=== PATIENT | female | born 1990 | race Caucasian/White ===

== ENCOUNTER → 2017-07-21 | Outpatient (CLI) | payer OTHER ==
[2017-07-21 11:10] LABS: GTGD 50 Grams
== END | disposition home or self-care (01) ==
LOC: C.LAB1850 09:24
PROVIDERS: ATTEND Obstetrics & Gynecology
DX: Z34.02 Encounter for supervision of normal first pregnancy, second trimester (principal)

== ENCOUNTER → 2017-10-12 | Outpatient (CLI) | payer OTHER ==
[2017-10-12 18:16] LABS: URINE APPEARANCE CLEAR (CLEAR); URINE BILIRUBIN NEG (NEG); URINE COLOR YELLOW; URINE NITRITE NEG (NEG); URINE PH 6.5 (4.5-7.5); UROBILINOGEN NEG (NEG)
[2017-10-12 18:19] LABS: MANUAL MICROSCOPIC REQUIRED? YES; REVIEW REQ? NO
[2017-10-12 18:26] LABS: URINE BACTERIA 1+ (NEG); URINE RBC 0-4 /hpf (0-4)
== END | disposition home or self-care (01) ==
LOC: C.LABSPEC 17:35
PROVIDERS: ATTEND Obstetrics & Gynecology
DX: Z34.03 Encounter for supervision of normal first pregnancy, third trimester (principal)

== ENCOUNTER → 2017-10-12 | Outpatient (CLI) | payer OTHER ==
[2017-10-12 17:27] LABS: HEMATOCRIT 34.4 % (37-47)
[2017-10-12 18:56] LABS: GTGD 50 Grams
== END | disposition home or self-care (01) ==
LOC: C.LAB1850 15:58
PROVIDERS: ATTEND Obstetrics & Gynecology
DX: Z34.03 Encounter for supervision of normal first pregnancy, third trimester (principal)

== ENCOUNTER 2017-12-11 16:16 | Outpatient (CLI) | payer OTHER ==
[2017-12-11] MEDS ORDERED: PRENTAB26 PO (17:35)
== END 2017-12-11 17:27 | disposition home or self-care (01) ==
LOC: C.LD 16:16 → C.OPB 16:16
PROVIDERS: ATTEND Obstetrics & Gynecology
DX: O99.89 Other specified diseases and conditions complicating pregnancy, childbirth and the puerperium (principal); M54.9 Dorsalgia, unspecified; Z3A.36 36 weeks gestation of pregnancy

== ENCOUNTER → 2017-12-14 | Outpatient (CLI) | payer OTHER ==
[~2017-12-14] MED LIST: PRENTAB26 PO
== END | disposition home or self-care (01) ==
LOC: C.LABSPEC 17:52
PROVIDERS: ATTEND Obstetrics & Gynecology
DX: Z34.03 Encounter for supervision of normal first pregnancy, third trimester (principal)

== ENCOUNTER 2018-01-03 13:43 | Inpatient (IN) | payer OTHER ==
[~2018-01-03] VITALS: Ht 162.6 cm; Wt 72.3 kg
[2018-01-03 15:33] LABS: HEMATOCRIT 36.9 % (37-47); HEMOGLOBIN 12.9 g/dL (12.0-16.0); MEAN CELL VOLUME 94.9 fL (80-100); MEAN CORPUSCULAR HEMOGLOBIN 33.2 pg (25-34); MEAN PLATELET VOLUME 9.8 fL (7.4-10.4); PLATELET COUNT 227 K/uL (130-400); RED CELL DISTRIBUTION WIDTH CV 13.2 % (11.5-14.5); RED CELL DISTRIBUTION WIDTH SD 45.6 fL (36.4-46.3); WHITE BLOOD COUNT 15.98 K/uL (4.8-10.8)
[2018-01-03 16:09] VITALS: Ht 162.6 cm; Wt 72.3 kg
[2018-01-03] MEDS ORDERED: MISOPROSTOL 25 MCG TAB PO ONE (21:00)
[2018-01-04] MEDS ORDERED: LACTATED RINGER'S 1000ML 500 ML IV PRN ×2 (01:57→12:32)
[2018-01-04] MEDS ORDERED: OXYTOCIN 30 UNITS/500ML NSS IV PRN ×2 (02:00→19:15)
[2018-01-04] MEDS ORDERED: LACTATED RINGER'S 1000ML 1,000 ML IV PRN (06:11)
[2018-01-04] MEDS ORDERED: LACTATED RINGER'S 1000ML 1,000 ML IV SCH (06:11)
--- NOTE | 2018-01-04 09:34 | Progress Note ---
Progress Note Date of Service Jan 04, 2018. Progress Note patient notes she is nauseated and has carter. Rates contractions a 3 afvss cx--3/80/-2 forebag ruptured for clear fluid toco--q2-3min, pit at 17 efm--130s with mod variability, accels to 150s, no decels a/p--prom x 21.5 hours, clear, afebrile. plan to max pit at 20 and then if no change, plan iupc and increase pit to needed mvus. plan explained to the patient who expresses understanding.
[2018-01-04] MEDS ORDERED: NALOXONE HCL INJ 1 MG in SODIUM CHLORIDE 0.9% 1000ML 1,000 ML IV PRN (12:32)
[2018-01-04] MEDS ORDERED: ONDANSETRON INJ 2 MG/ML 2 ML VIAL IV PRN (12:45)
[2018-01-04] MEDS ORDERED: FENTANYL 2MCG/ML ROPIV 1.25MG/ML 100ML BAG EPI PRN (12:45)
[2018-01-04] MEDS ORDERED: NALOXONE HCL INJ 0.4 MG/1 ML VIAL/CARP IV PRN (12:45)
[2018-01-04] MEDS ORDERED: EpHEDrine SULFATE INJ 50 MG/ML AMP IV PRN (12:45)
[2018-01-04] MEDS ORDERED: NALBUPHINE HCL INJ 10 MG/ML AMP IV PRN (12:45)
[2018-01-04] MEDS ORDERED: DiphenhydrAMINE HCL 50 MG/ML VIAL IV PRN (12:45)
[2018-01-04] MEDS ORDERED: BUPIVACAINE 0.25% 30 ML VIAL ONE (13:11)
[2018-01-04] MEDS ORDERED: FENTANYL CITRATE INJ 50 MCG/1 ML 2 ML VIAL ONE (13:11)
[2018-01-04] MEDS ORDERED: EpHEDrine SULFATE INJ 50 MG/ML AMP ONE (13:11)
[2018-01-04] MEDS ORDERED: FENTANYL 2MCG/ML ROPIV 1.25MG/ML 100ML BAG EPI ONE (13:12)
[2018-01-04] MEDS ORDERED: METHYLERGONOVINE MALEATE 0.2 MG TAB ONE (19:00)
[2018-01-04] MEDS ORDERED: METHYLERGONOVINE MALEATE 0.2 MG/ML AMP ONE (19:01)
[2018-01-04] MEDS ORDERED: DIPHTHERIA/TETANUS/PERTUSSIS 0.5 ML SYR/VIAL IM. ONE (19:15)
[2018-01-04] MEDS ORDERED: LANOLIN OINT EXT PRN (19:15)
[2018-01-04] MEDS ORDERED: HYDROCORTISONE ACETATE 25 MG SUPP PR PRN (19:15)
[2018-01-04] MEDS ORDERED: METHYLERGONOVINE MALEATE 0.2 MG/ML AMP IM ONE (19:15)
[2018-01-04] MEDS ORDERED: OXYCODONE/ACETAMINOPHEN 5-325 TAB PO PRN (19:15)
[2018-01-04] MEDS ORDERED: SUPERCREAM 0.870 % 15GM JAR EXT PRN (19:15)
[2018-01-04] MEDS ORDERED: ACETAMINOPHEN 325 MG TAB PO PRN (19:15)
[2018-01-04] MEDS ORDERED: BENZOCAINE 20% AER SPR 82.5 GM CAN EXT PRN (19:15)
--- NOTE | 2018-01-04 20:37 | DELIVERY SUMMARY ---
DATE OF OPERATION: 01/04/2018 PREOPERATIVE DIAGNOSES: 1. Intrauterine at 40-2/7 weeks. 2. and prolonged rupture of membranes. 3. Pitocin augmentation. 4. Epidural anesthesia. 5. Intrauterine pressure catheter. 6. Normal spontaneous vaginal delivery. 7. Second degree perineal laceration with repair. SURGEON: Catarina Fofana MD. ANESTHESIA: Epidural. ESTIMATED BLOOD LOSS: 400 mL. DESCRIPTION OF THE PROCEDURE: The patient presented to labor and delivery with rupture of membranes on 01/03/2018 at noon. She really did not want any intervention and so she was expectantly managed for several hours. When she did not have any significant change, she eventually accepted Pitocin augmentation and this was approximately 5 a.m. on 01/04/2018. She then progressed slowly and Pitocin achieved at maximum per protocol of 20 milliunits per minute. A forebag had previously been ruptured for clear fluid. Her cervix was unchanged at 3, 80 and -2. An intrauterine pressure catheter was placed and contractions were now found to be adequate. A new max of 30 milliunits was imitated on the Pitocin and she did progress to that but then finally did get into an adequate contraction pattern with greater than 200 MVU. She then progressed to complete complete and +2 station. She pushed effectively to deliver a viable female in LIYAH presentation. The nose and mouth were bulb suctioned on the perineum. A tight nuchal cord that could not be reduced was clamped and cut on the perineum. The rest of the infant was then delivered without difficulty. The infant was placed on the maternal abdomen for drying and attention. Cord blood was obtained. Placenta was delivered spontaneously intact with a 3-vessel cord. Cervix, sulci and rectum were examined and found to be intact. A second degree perineal laceration was repaired with 3-0 Vicryl in a normal standard fashion. Hemostasis was obtained with dilute Pitocin, fundal massage and IM Methergine. Apgars were 9 and 9. Weight pending. Mother and baby doing well at the end of the delivery. I attest to the content of the Intraoperative Record and any orders documented therein. Any exception s are noted below.
[2018-01-04] MEDS: DOCUSATE SODIUM 100 MG CAP PO SCH (20:41)
[2018-01-04] MEDS: IBUPROFEN 600 MG TAB PO PRN (21:20)
--- NOTE | 2018-01-04 21:34 | Anesthesia Procedure Note ---
Anesthesia Epidural Removal Nt Date & Time Jan 04, 2018 at 21:34 Vital Signs Pain Intensity: 1 Notes Mental Status: alert / awake / arousable, participated in evaluation Nausea / Vomiting: adequately controlled Pain: adequately controlled Airway Patency, RR, SpO2: stable & adequate BP & HR: stable & adequate Hydration State: stable & adequate Neuraxial Anesthesia: was administered Anesthetic Complications: no major complications apparent, pt satisfied with anesthetic care Epidural: removed without complications, with tip intact
[2018-01-04 23:00] VITALS: BP 124/74; PULSE 99; TEMP 37.1; O2SAT 97
[2018-01-05 04:00] VITALS: BP 101/58; PULSE 87; TEMP 36.9; O2SAT 96
[2018-01-05 07:21] LABS: HEMATOCRIT 30.3 % (37-47); HEMOGLOBIN 10.8 g/dL (12.0-16.0)
[2018-01-05 07:30] VITALS: BP 99/68; PULSE 88; TEMP 36.4; O2SAT 97
--- NOTE | 2018-01-05 08:03 | Progress Note ---
Subjective Jan 05, 2018. Subjective conversation w/ patient, conversation w/ family, physical exam, chart review Ambulation: limited ambulation Voiding: no voiding problems Passing Gas: Yes Diet Tolerance: Regular Diet Lochia: Moderate Feeding Type: Breast Feeding Pain: Reports some manageable perineal pain Comment: Pt seen and examined at bedside. no acute events overnight Review of Systems Constitutional: + fatigue, No fever, No chills, No sweats, No weight loss, No weakness, No problem reported Respiratory: No cough, No sputum, No wheezing, No shortness of breath, No dyspnea on exertion, No dyspnea at rest, No hemoptysis, No problem reported Cardiac: No chest pain, No orthopnea, No PND, No edema, No claudication, No palpitations, No problem reported Breast: No breast lump, No change in shape, No nipple discharge, No breast pain , No problem reported Abdomen: No pain, No nausea, No vomiting, No diarrhea, No constipation, No GI bleeding, No problem reported Female : No dysuria, No urinary frequency, No hematuria, No incontinence, No abnormal vaginal bleeding, No vaginal discharge, No problem reported No headaches reported Objective Vital Signs Date Time Temp Pulse Resp B/P (MAP) Pulse Ox O2 Delivery O2 Flow Rate FiO2 01/05/18 04:00 36.9 87 16 101/58 (72) 96 Room Air 01/04/18 23:00 37.1 99 20 124/74 (91) 97 Room Air 01/04/18 23:00 97 Room Air Physical Exam General Appearance: WELL-APPEARING, WD/WN, NO APPARENT DISTRESS Respiratory/Chest: chest non-tender, lungs clear, normal breath sounds Cardiovascular: regular rate, rhythm, no edema, no gallop Abdomen: normal bowel sounds, non tender, soft Fundus: Firm, Tender, Relation to Umbilicus (2 cm below) Extremities: normal range of motion, non-tender, normal inspection, no pedal edema, no calf tenderness Laboratory Results Last 24 Hours Test 01/05/18 06:58 Hemoglobin 10.8 g/dL Hematocrit 30.3 % Medications Current Inpatient Medications Medications (Trade) Dose Ordered Sig/[place] Route Start Time Stop Time Status Last Admin Dose Admin Oxytocin (Pitocin IV) 30 units UD PRN IV 01/04/18 19:15 02/03/18 19:14 01/04/18 19:19 30 UNITS Benzocaine (Dermoplast Aero Spr) 1 appln PRN PRN EXT 01/04/18 19:15 02/03/18 19:14 01/04/18 20:41 1 APPLN Cocaine HCl (Supercream 0.870% Cr) BID PRN EXT 01/04/18 19:15 01/18/18 19:14 Hydrocortisone Acetate (Anusol Hc Supp) 25 mg BID PRN ID 01/04/18 19:15 02/03/18 19:14 Lanolin (Lanolin Oint) PRN PRN EXT 01/04/18 19:15 02/03/18 19:14 Prenat Multivit/ [place]/Iron/Folic Ac ( Vitamin Tab) 1 tab DAILY PO 01/05/18 08:00 02/04/18 07:59 Ibuprofen (Motrin Tab) 600 mg Q4H PRN PO 01/04/18 19:15 02/03/18 19:14 01/04/18 21:20 600 MG Acetaminophen (Tylenol Tab) 650 mg Q6H PRN PO 01/04/18 19:15 02/03/18 19:14 Oxycodone/ Acetaminophen (Percocet 5-325mg Tab) 1 tab Q4H PRN PO 01/04/18 19:15 01/18/18 19:14 Docusate Sodium (coLACE CAP) 100 mg BID PO 01/04/18 20:00 02/03/18 19:59 01/04/18 20:41 100 MG Assessment and Plan Post- Day#: 1 Continue Routine Care: S/P day 1 AFVSS Hgb 12.9--10.8 blood type AB pos, GBS neg, rubella immune pt doing well clinically, quite fatigued from yesterday Encourage ambulation, monitoring pain control, continue regular diet, monitor lochia Continue bottom care and breast care as discussed Encourage breast feeding Resident Physician Supervision Note: I interviewed and examined the patient. Discussed with Dr. Johnson and agree with findings and plan as documented in the note. Any exceptions or clarifications are listed here: Doing well. routine care. Documented By: Catarina Fofana Resident Tracking Resident Involvement: Resident Care Provided Care Provided: OB Delivery
[2018-01-05] MEDS: PRENATAL VITAMIN TAB PO SCH (08:04)
[2018-01-05] MEDS: DOCUSATE SODIUM 100 MG CAP PO SCH ×2 (08:04→19:38)
[2018-01-05] MEDS: IBUPROFEN 600 MG TAB PO PRN ×3 (08:05→19:39)
[2018-01-05 11:35] VITALS: BP 103/67; PULSE 67; TEMP 36.7; O2SAT 97
[2018-01-05 15:50] VITALS: BP 100/68; PULSE 86; TEMP 36.9
--- NOTE | 2018-01-05 22:07 | Discharge Instructions ---
Discharge Instructions Date of Service Jan 05, 2018. Admission Reason for Admission: LABOR Discharge Discharge Diagnosis / Problem: s/p Discharge Goals Goal(s): Routine recovery after delivery Medications Continue Dispensed Medications: supercream, dermaplast, tucks, lansinoh Activity Recommendations Activity Limitations: per Instructions/Follow-up section . Instructions / Follow-Up Instructions / Follow-Up ACTIVITY RECOMMENDATIONS: * Gradual return to full activity over the next 2-3 weeks. * No lifting - nothing heavier than baby over the next 2-3 weeks. * Do not engage in vigorous exercise, sexual activity or sports until cleared by your physician. * Do not drive or operate any motorized equipment until cleared by your physician. * You may shower/bathe daily. MEDICATIONS: For discomfort or pain, you may use Acetaminophen (Tylenol), Ibuprofen (Advil), or Naproxen (Aleve) following the package directions. For constipation you may use Colace following the package directions. BREAST CARE: If you are not breast feeding: * Wear a supportive bra 24 hours a day for one to two weeks. * Avoid stimulating your breasts and nipples as much as possible during the first few weeks after delivery. * When taking a shower, have the warm water hit your back, not breasts. * When your breasts feel full, apply ice packs. Usually three to four times a day helps ease the discomfort. * Take a mild pain medication (Tylenol / Motrin) when you are uncomfortable. If breast feeding: * Use breast milk to lubricate nipples. Lansinoh cream may be used for sore nipples. You do not need to remove cream prior to breast feeding. If using a different brand of cream, check the label for directions regarding removal of cream prior to nursing. * Wear a supportive bra. * If having problems with breasts or breast feeding, call a windows consultant or your health care provider. EPISIOTOMY CARE: After delivery, if you have an episiotomy (stitches), the following steps will ease discomfort and aid healing. * For the first 24 hours after delivery, place ice packs next to your episiotomy to help reduce swelling. * After the first 24 hour-period, sitz baths, either portable or in the tub, are suggested. A shower with a shower arm sprayed over the episiotomy may be comforting. * Deandra care should be done after each voiding and bowel movement. Squirt warm water from a plastic bottle over the perineum (region of the body between the anus and urinary opening) and pat dry. * Use Dermoplast to ease discomfort. Shake container. [place] directly over the episiotomy. Place a Tucks on a clean sanitary pad next to your episiotomy. SPECIAL CARE INSTRUCTIONS: When you are discharged from the hospital, it is important for you to follow the instructions listed below: * During the first week at home, you should be able to care for yourself and your baby. In addition, the usual light household activities are encouraged. * Limit your activities to the way you feel. Do not try to clean the house or move furniture. Be sensible. * If you actively engage in sports and have done so up until the time of your delivery, you may resume these activities as soon as you feel able. This may take up to one month or even longer. Use good judgment. * Continue to take your vitamins for at least six weeks after the of your baby. * Your diet need not be limited unless you were on a special diet before your delivery. Breast-feeding mothers need around 2500 calories per day and at least 64-80 ounces of fluid per day (8 to 10 glasses). * You should eat foods from the four major food groups. Crash diets or fad diets are to be avoided. Eating lean meats, fresh fruits and vegetables, low-fat dairy products, high fiber foods and a regular exercise program, will help you get back to your pre- weight without putting your health at risk. * Constipation is sometimes a problem after delivery. Take a mild laxative as needed. If breast feeding, Milk of Magnesia is acceptable to use. You may use a suppository or Fleets enema if no episiotomy. * A daily shower or tub bath is suggested. Be sure to thoroughly and gently dry the perineum. * A bloody vaginal discharge will usually continue until around four weeks post . A small amount of bleeding may continue for as long as six weeks. Vaginal discharge changes from the bright red bleeding after delivery to pink then brownish and finally yellowish-pink before becoming white and disappearing. * Bleeding may increase with activity. Your first period may come in 4-8 weeks. If you are breast feeding, your period may be delayed even longer. * [place] (sex) can begin whenever both you and your partner feel comfortable and do not have any form of genital infection. It is recommended that you wait at least six weeks for internal and external healing to occur. If you have questions, please talk to your health care practitioner. A condom should be used to prevent infection and . * Foreplay, gentle intercourse and lubrication is very important the first several times to prevent pain. A water-based lubricant such as K-Y jelly or Astroglide may be used. * If you have RH negative blood and your baby is RH positive, you will receive RHOGAM by injection prior to discharge. The nurse will give you a card to keep with you that has the date and place that you received RHOGAM after delivery. * During your care, you had a Rubella screen done to check for the presence of rubella antibodies in your blood. If your test was negative, you will receive a Rubella vaccine prior to discharge. This vaccine may cause a fever, soreness at the injection site and flu-like symptoms. If these symptoms persist, notify your health care practitioner. is not advised for one month after a Rubella vaccine. * Verbalizes understanding of car seat law as reviewed with patient nursing. * Car Seat hand-out given and reviewed with patient by nursing. * Shaken baby information reviewed with patient by nursing. Call you doctor if: * Heavy bleeding (saturating several pads an hour) or passing clots the size of your fist. * A fever >101 degrees F (38.3 degrees C) on two occasions four hours apart and /or chills. * Unusual pain in the pelvic or vaginal areas. * "Baby Blues" lasting longer than two weeks. If you have any questions or concerns, call your health care practitioner at . FOLLOW UP VISIT: * Please call the office at to schedule a 6 week examination. It is important you keep this appointment. It is important for you to make arrangements for either yearly or twice yearly check-ups thereafter. Current Hospital Diet Patient's current hospital diet: Regular OB Diet, Gluten Free Diet Discharge Diet Recommended Diet: Gluten Free Diet, Regular OB Diet Pending Studies Studies pending at discharge: no Medical Emergencies . Who to Call and When: Medical Emergencies: If at any time you feel your situation is an emergency, please call 911 immediately. . Non-Emergent Contact Non-Emergency issues call your: [employer] . . "Provider Documentation" section prepared by Albertina Johnson. .
[2018-01-05 23:00] VITALS: BP 108/72; PULSE 76; TEMP 36.7; O2SAT 97
--- NOTE | 2018-01-06 07:08 | Progress Note ---
Subjective Jan 06, 2018. Subjective conversation w/ patient, physical exam, chart review, lab review Ambulation: ambulating normally Voiding: no voiding problems Passing Gas: Yes Diet Tolerance: Regular Diet Lochia: Small Feeding Type: Breast Feeding Pain: minimal pain reported and improving Comment: pt seen and examined at bedside, no acute events overnight Review of Systems Constitutional: No fever, No chills, No sweats, No weight loss, No weakness, No fatigue, No problem reported Respiratory: No cough, No sputum, No wheezing, No shortness of breath, No dyspnea on exertion, No dyspnea at rest, No hemoptysis, No problem reported Cardiac: No chest pain, No orthopnea, No PND, No edema, No claudication, No palpitations, No problem reported Breast: No breast lump, No change in shape, No nipple discharge, No breast pain , No problem reported Abdomen: No pain, No nausea, No vomiting, No diarrhea, No constipation, No GI bleeding, No problem reported Female : No dysuria, No urinary frequency, No hematuria, No incontinence, No abnormal vaginal bleeding, No vaginal discharge, No problem reported no headache or calf pain reported Objective Vital Signs Date Time Temp Pulse Resp B/P (MAP) Pulse Ox O2 Delivery O2 Flow Rate FiO2 01/05/18 23:00 36.7 76 18 108/72 (84) 97 Room Air 01/05/18 23:00 97 Room Air 01/05/18 15:50 Room Air 01/05/18 15:50 36.9 86 16 100/68 (79) Room Air 01/05/18 11:35 36.7 67 18 103/67 (79) 97 Room Air 01/05/18 07:30 97 Room Air 01/05/18 07:30 36.4 88 18 99/68 (78) 97 Room Air Physical Exam General Appearance: WELL-APPEARING, WD/WN, NO APPARENT DISTRESS Respiratory/Chest: chest non-tender, lungs clear, normal breath sounds, no respiratory distress, no accessory muscle use Cardiovascular: regular rate, rhythm, no edema, no murmur Abdomen: normal bowel sounds, soft, + tenderness Fundus: Firm, Non-Tender, Relation to Umbilicus (2cm below) Extremities: normal range of motion, non-tender, normal inspection, no pedal edema, no calf tenderness Laboratory Results Last Resulted 01/03/18 15:22 01/05/18 06:58 Medications Current Inpatient Medications Medications (Trade) Dose Ordered Sig/[place] Route Start Time Stop Time Status Last Admin Dose Admin Oxytocin (Pitocin IV) 30 units UD PRN IV 01/04/18 19:15 02/03/18 19:14 01/04/18 19:19 30 UNITS Benzocaine (Dermoplast Aero Spr) 1 appln PRN PRN EXT 01/04/18 19:15 02/03/18 19:14 01/04/18 20:41 1 APPLN Cocaine HCl (Supercream 0.870% Cr) BID PRN EXT 01/04/18 19:15 01/18/18 19:14 Hydrocortisone Acetate (Anusol Hc Supp) 25 mg BID PRN HI 01/04/18 19:15 02/03/18 19:14 Lanolin (Lanolin Oint) PRN PRN EXT 01/04/18 19:15 02/03/18 19:14 Prenat Multivit/ [place]/Iron/Folic Ac ( Vitamin Tab) 1 tab DAILY PO 01/05/18 08:00 02/04/18 07:59 01/05/18 08:04 1 TAB Ibuprofen (Motrin Tab) 600 mg Q4H PRN PO 01/04/18 19:15 02/03/18 19:14 01/05/18 19:39 600 MG Acetaminophen (Tylenol Tab) 650 mg Q6H PRN PO 01/04/18 19:15 02/03/18 19:14 Oxycodone/ Acetaminophen (Percocet 5-325mg Tab) 1 tab Q4H PRN PO 01/04/18 19:15 01/18/18 19:14 Docusate Sodium (coLACE CAP) 100 mg BID PO 01/04/18 20:00 02/03/18 19:59 01/05/18 19:38 100 MG Assessment and Plan Post- Day#: 2 Continue Routine Care: 27yo F PPD2 s/p at 40+2 Pt clinically doing well, AFVSS hgb reviewed, 10.8 Blood type ABpos, GBS neg, rubella immune Routine care Encourage ambulation, breast feeding, pain control with Rx prn Discharge instructions reviewed Resident Physician Supervision Note: I interviewed and examined the patient. Discussed with Dr. Johnson and agree with findings and plan as documented in the note. Any exceptions or clarifications are listed here: D/C instructions reviewed with patient, f/u in 6 weeks Documented By: Jermain Narayanan Resident Tracking Resident Involvement: Resident Care Provided Care Provided: OB Delivery
[2018-01-06] MEDS: DOCUSATE SODIUM 100 MG CAP PO SCH (07:53)
[2018-01-06] MEDS: PRENATAL VITAMIN TAB PO SCH (07:53)
[2018-01-06] MEDS: IBUPROFEN 600 MG TAB PO PRN (07:53)
[2018-01-06 07:59] VITALS: BP 116/75; PULSE 91; TEMP 36.6; O2SAT 95
[2018-01-06 10:03] VITALS: BP_DIAS 75; PULSE 91; TEMP 36.6
== END 2018-01-06 12:34 | disposition home or self-care (01) | DRG 775 ==
LOC: C.OPB 13:43 → C.LD 13:45 → C.OPB 15:22 → C.LD 15:24 → C.OBG 01-04 22:47
PROVIDERS: ADMIT Obstetrics & Gynecology; ATTEND Obstetrics & Gynecology
PROC: 10E0XZZ Delivery of Products of Conception, External Approach (ICD-10-PCS; principal; 2018-01-04)
PROC: 0KQM0ZZ Repair Perineum Muscle, Open Approach (ICD-10-PCS; principal; 2018-01-04)
PROC: 3E033VJ Introduction of Other Hormone into Peripheral Vein, Percutaneous Approach (ICD-10-PCS; principal; 2018-01-04)
DX: O69.1XX1 Labor and delivery complicated by cord around neck, with compression, fetus 1 (principal); O70.1 Second degree perineal laceration during delivery; Z37.0 Single live birth; Z3A.40 40 weeks gestation of pregnancy

== ENCOUNTER 2020-02-10 15:57 | Inpatient (IN) ==
[2020-02-10] MEDS ORDERED: OXYTOCIN 30 UNITS/500 ML BAG IV PRN ×2 (16:56→23:59)
--- NOTE | 2020-02-10 16:56 | History & Physical Report ---
Date of Service February 10, 2020 Assessment & Plan (1) : Admit, labs, IVfluids, EFM/toco. Would like epidural as soon as possible. History of Present Illness Chief Complaint: contractions Primary Care Provider: Barbara Theodore MD 29yo @ 40 0/7 presents with regular contractions. No rupture of membranes or vaginal bleeding. + movement. uncomplicated. Allergies Allergy/AdvReac Type Severity Reaction Status Date / Time No Known Allergies Allergy Verified 02/10/20 10:14 Home Medications Home Medications Medication Instructions Recorded Confirmed Type prenat.vits,romain,[id number] 1 tab PO DAILY 06/28/19 02/10/20 History Patient History Medical History Miscarriage Varicella vaccine Surgical History History of oral surgery Family History Grandmother Diabetes Grandfather Diabetes Mother Hypertension Kidney stone Osteoporosis Breast cancer Depression Father Hypertension Hypercholesterolemia Social History Preferred Language: [place] Communication Ability: Effective Washer Machine Required: No Beliefs That Will Affect Care: None marital status: marital status details: Deric Yepez (26) [phone] Current Living Situation: Spouse Current Living Situation Comment: 2 dogs current occupational status: employed current occupation: [employer] @ [employer] Feels Safe at Home: Yes Safety Concerns: Feels Safe At This Time Smoking Status: Never smoker Hx Alcohol Use: No Hx Substance Use: No Childhood Exposure to Second-Hand Smoke: No Review of Systems All systems reviewed & are unremarkable except as noted in HPI & below Physical Exam Physical Exam: Cervix 6cm dilated per RN Constitutional: WD/WN, vitals as above Respiratory: normal respiratory effort, lungs clear to auscultation no respiratory distress Cardiovascular: Rate/Rhythm: regular rate and regular rhythm Gastrointestinal (Abdomen): Inspection/Auscultation: abdomen normal to inspection Percussion/Palpation: abdomen soft; abdomen nontender Gravid. No s/s chorio or abruption. Skin: no rashes, warm and dry Psychiatric: A+Ox3, euthymic affect Results & Data Vital Signs (Past 12 Hours) Vital Signs Temp Pulse Resp BP 02/10/20 16:25 86 118/73 02/10/20 16:20 37.1 C 18 Monitoring External Monitor FHT Cat 1, toco Q 2-3 min Coding Level of Care Code None Diagnoses Z34.90
[2020-02-10] MEDS: LACTATED RINGER'S 1,000 ML IV PRN ×2 (17:22→20:09)
[2020-02-10] MEDS ORDERED: ePHEDrine sulfate 50 MG/ML AMP ONE (17:34)
[2020-02-10] MEDS ORDERED: BUPIVACAINE 0.25% 30 ML VIAL ONE (17:35)
[2020-02-10] MEDS ORDERED: fentaNYL citrate 100 MCG/2 ML VIAL ONE (17:35)
[2020-02-10 17:36] LABS: Hematocrit (blood only) 38.1 % (37-47); Hemoglobin 12.9 g/dL (12.0-16.0); Mean Corpuscular Hemoglobin 32.3 pg (25-34); Mean Corpuscular Volume 95.5 fL (80-100); Mean Platelet Volume 9.9 fL (7.4-10.4); Platelet Count 231 K/uL (130-400); RDW Coefficient of Variation 13.8 % (11.5-14.5); RDW Standard Deviation 47.9 fL (36.4-46.3); Red Blood Count 3.99 M/uL (4.2-5.4); White Blood Count 13.63 K/uL (4.8-10.8)
[2020-02-10] MEDS ORDERED: fentaNYL 2MCG/ML ROPIV 1.25MG/ML 100 ML BAG EPI ONE (17:36)
[2020-02-10 17:39] LABS: Mean Corpuscular Hgb Conc 33.9 g/dL (32-36)
--- NOTE | 2020-02-10 18:18 | Anesthesiology Consultation ---
Date of Service February 10, 2020 Assessment & Plan Chart Review Chart Review: Acceptable Risk for Labor Epidural Consults Requested none History Height/Weight Height: 5 ft 4 in Weight: 80.739 kg Allergies Allergy/AdvReac Type Severity Reaction Status Date / Time No Known Allergies Allergy Verified 02/10/20 10:14 Medications Home Medications Medication Instructions Recorded Confirmed Last Taken prenat.vits,romain,[id number]-dsdll 1 tab PO DAILY 06/28/19 02/10/20 2 Days Ago ~02/08/20 Active Medications Generic Name Dose Route Start Last Admin Trade Name Freq PRN Reason Stop Dose Admin Lactated Ringer's 1,000 mls @ 125 mls/hr 02/10/20 16:56 02/10/20 18:05 Lr IV 02/12/20 16:55 125 mls/hr .Q8H PRN Infusion L&D Protocol Protocol Past Medical History Medical History Miscarriage Varicella vaccine Past Family History Family History Grandmother Diabetes Grandfather Diabetes Mother Hypertension Kidney stone Osteoporosis Breast cancer Depression Father Hypertension Hypercholesterolemia Past Surgical History Surgical History History of oral surgery Social History Smoking Status: Never smoker Hx Alcohol Use: No Hx Substance Use: No Physical Exam Vital Signs Last Vital Signs Temp 37.1 C 02/10/20 16:20 Pulse 100 H 02/10/20 18:14 Resp 18 02/10/20 16:20 BP 111/68 02/10/20 18:14 Pulse Ox 100 02/10/20 18:12 Testing Laboratory Results 02/10/20 17:21
[2020-02-10] MEDS ORDERED: NALBUPHINE HCL INJ 10 MG/ML AMP IV PRN (18:23)
[2020-02-10] MEDS ORDERED: fentaNYL 2MCG/ML ROPIV 1.25MG/ML 100 ML BAG EPI PRN (18:23)
[2020-02-10] MEDS ORDERED: NALOXONE HCL 1 MG in SODIUM CHLORIDE 0.9% 1000ML 1,000 ML IV PRN (18:23)
[2020-02-10] MEDS ORDERED: ePHEDrine sulfate 50 MG/ML AMP IV PRN (18:23)
[2020-02-10] MEDS ORDERED: DiphenhydrAMINE HCL 50 MG/ML VIAL IV PRN (18:23)
[2020-02-10] MEDS ORDERED: NALOXONE HCL 0.4 MG/1 ML VIAL/CARP IV PRN (18:23)
--- NOTE | 2020-02-10 20:44 | Labor Progress Brief Note ---
Date of Service February 10, 2020 Subjective Comfortable with epidural. FHT Cat 1 Wolf [place]rap Q 2-3 SVE 8/100/-2 AROM performed for clear fluid. Anticipate . Results & Data Vital Signs (Past 12 Hours) Vital Signs Temp Pulse Resp BP Pulse Ox 02/10/20 20:42 70 97 02/10/20 20:38 95 H 126/90 02/10/20 20:37 73 97 02/10/20 20:32 87 97 02/10/20 20:27 88 99 02/10/20 20:22 84 97 02/10/20 20:17 83 96 02/10/20 20:16 85 110/70 02/10/20 20:12 89 96 02/10/20 20:07 95 H 97 02/10/20 20:02 91 H 96 02/10/20 20:01 96 H 106/67 02/10/20 19:57 90 97 02/10/20 19:52 84 97 02/10/20 19:47 88 96 02/10/20 19:46 90 107/65 02/10/20 19:42 91 H 96 02/10/20 19:37 95 H 97 02/10/20 19:32 81 97 02/10/20 19:31 86 111/65 02/10/20 19:27 84 96 02/10/20 19:22 90 96 02/10/20 19:17 86 96 02/10/20 19:16 84 112/60 02/10/20 19:12 87 96 02/10/20 19:07 94 H 97 02/10/20 19:02 94 H 97 02/10/20 19:01 88 122/72 02/10/20 19:00 37.2 C 16 02/10/20 18:57 93 H 98 02/10/20 18:52 92 H 97 02/10/20 18:47 96 H 96 02/10/20 18:46 84 108/63 02/10/20 18:42 85 97 02/10/20 18:37 100 H 97 02/10/20 18:32 101 H 114/66 98 02/10/20 18:30 18 02/10/20 18:27 102 H 99 02/10/20 18:22 107 H 100 02/10/20 18:17 104 H 100 04/10/20 18:14 100 H 111/68 04/10/20 18:12 109 H 100 02/10/20 18:11 91 H 111/65 02/10/20 18:08 83 111/64 02/10/20 18:07 89 100 02/10/20 18:05 85 112/68 02/10/20 18:03 88 113/72 02/10/20 18:02 84 111/64 99 02/10/20 18:00 20 02/10/20 17:59 85 111/64 02/10/20 17:57 94 H 100 02/10/20 17:52 82 100 02/10/20 17:47 86 100 02/10/20 17:35 18 02/10/20 17:05 18 02/10/20 17:00 18 02/10/20 16:55 20 02/10/20 16:50 20 02/10/20 16:25 86 118/73 02/10/20 16:20 37.1 C 18 Coding Level of Care Code None
--- NOTE | 2020-02-10 22:09 | Delivery Summary ---
Vaginal Delivery Summary Date of Service February 10, 2020 Vaginal Delivery Summary Vaginal Delivery Summary: Pre-delivery diagnoses: 29yo @ 40 0/7, labor Post-delivery diagnoses: same Procedure: spontaneous vaginal delivery, repair of 1st degree perineal laceration Surgeon: Inga Woods DO Complications: none Findings: Viable male . Apgars: 10/10. Weight pending, please see nursery records Estimated blood loss: 300ml Description of delivery: The patient progressed to complete with epidural anesthesia. She then began to push. She spontaneously vaginally delivered a viable from the cephalic presentation. The head delivered in JOHNNIE po sition. The anterior shoulder delivered, followed by the posterior shoulder, followed by the body. The baby was placed on mother's abdomen and a spontaneous cry was heard. Delayed cord clamping was employed, and the cord was doubly clamped and cut. Cord blood was obtained. The placenta was delivered spontaneously intact with a 3-vessel cord. The uterus and vagina were swept of clots and debris. IV pitocin was given. The uterus became firm. The cervix, vagina, and perineum were inspected and a 1st degree perineal laceration was noted and repaired in standard fashion with 3-0 vicryl. Excellent hemostasis was observed. The mother and baby are recovering in stable and good condition in the room. Sponge, needle, and instrument counts were correct x 2. Inga Woods DO [facility]
[2020-02-10] MEDS ORDERED: OXYCODONE/ACETAMINOPHEN 5mg/325mg TAB PO PRN (23:59)
[2020-02-10] MEDS ORDERED: bisacodyL 10 MG SUPP PR PRN (23:59)
[2020-02-10] MEDS ORDERED: HYDROCORTISONE ACETATE 25 MG SUPP PR PRN (23:59)
[2020-02-10] MEDS ORDERED: BENZOCAINE 20% AER SPR 82.5 GM CAN EXT PRN (23:59)
[2020-02-10] MEDS ORDERED: SUPERCREAM 0.870% 15 GM JAR EXT PRN (23:59)
[2020-02-10] MEDS ORDERED: DIPHTHERIA/TETANUS/PERTUSSIS 0.5 ML SYR/VIAL IM ONE (23:59)
[2020-02-10] MEDS ORDERED: ACETAMINOPHEN 325 MG TAB PO PRN (23:59)
[2020-02-11] MEDS: IBUPROFEN 600 MG TAB PO PRN ×3 (00:16→19:46)
--- NOTE | 2020-02-11 00:25 | Anesthesia Procedure Note ---
Date of Service February 11, 2020 Anesthesia Post Epidural Note Vital Signs Vital Signs: Temp Pulse Resp BP Pulse Ox 99.0 F 100 H 16 129/81 95 02/10/20 22:00 02/11/20 00:12 02/10/20 19:00 02/11/20 00:12 02/10/20 22:17 Pain Intensity Bilateral Lower Abdomen: Pain Intensity: 0 Bilateral Episiotomy/Laceration: Pain Intensity: 4 Notes Mental Status: alert / awake / arousable and participated in evaluation Nausea / Vomiting: adequately controlled Pain: adequately controlled Airway Patency, RR, SpO2: stable & adequate BP & HR: stable & adequate Hydration State: stable & adequate Neuraxial Anesthesia: was administered and sensory block is resolving Anesthetic Complications: no major complications apparent and Pt Satisfied with anesthetic care Epidural: Removed without complications and With tip intact
--- NOTE | 2020-02-11 08:19 | Obstetrical Progress Note ---
Date of Service February 11, 2020 Assessment & Plan (1) : PPD#1 doing well, no concerns. Continue routine care. Subjective Ambulation: ambulating normally Voiding: no voiding problems Diet Tolerance:: regular diet Lochia:: Moderate Feeding Type:: breast feeding PPD#1 doing well. Review of Systems All systems reviewed & are unremarkable except as noted in HPI & below Physical Exam Constitutional WD/WN, vitals as above no acute distress Respiratory normal respiratory effort Cardiovascular Rate/Rhythm: regular rate and regular rhythm Gastrointestinal (Abdomen) Inspection/Auscultation: abdomen normal to inspection; abdomen not distended Percussion/Palpation: abdomen soft Genitourinary OB Exam Abdomen: + fundal height Fundus: + firm; not tender Results & Data Vital Signs (Past 12 Hours) Vital Signs Temp Pulse Pulse Resp BP BP Pulse Ox 02/11/20 05:30 36.4 C L 72 18 119/79 02/11/20 01:00 36.4 C L 72 18 97/60 L 02/11/20 00:12 100 H 129/81 02/10/20 23:51 83 112/61 02/10/20 23:31 36.8 C 77 88 20 125/72 110/71 02/10/20 23:00 70 118/63 02/10/20 22:45 73 130/64 02/10/20 22:30 77 127/60 02/10/20 22:17 91 H 95 02/10/20 22:15 93 H 131/60 02/10/20 22:12 107 H 97 02/10/20 22:07 102 H 97 02/10/20 22:02 95 H 98 02/10/20 22:00 37.2 C 81 131/60 02/10/20 21:59 115 H 93 02/10/20 21:57 82 97 02/10/20 21:52 90 96 02/10/20 21:47 87 96 02/10/20 21:45 95 H 93 02/10/20 21:42 93 H 98 02/10/20 21:37 88 95 02/10/20 21:32 79 97 02/10/20 21:31 83 112/66 02/10/20 21:27 82 98 02/10/20 21:22 86 100 02/10/20 21:17 74 96 02/10/20 21:16 77 114/62 02/10/20 21:12 91 H 97 02/10/20 21:07 99 H 96 02/10/20 21:02 77 98 02/10/20 21:01 82 116/67 02/10/20 20:57 76 97 02/10/20 20:56 37.2 C 02/10/20 20:52 73 97 02/10/20 20:47 73 118/66 97 02/10/20 20:42 70 97 02/10/20 20:38 95 H 126/90 02/10/20 20:37 73 97 02/10/20 20:32 87 97 02/10/20 20:27 88 99 02/10/20 20:22 84 97
[2020-02-11] MEDS: DOCUSATE SODIUM 100 MG CAP PO SCH ×2 (08:29→20:02)
[2020-02-11] MEDS: PRENATAL VITAMIN 1 TAB PO SCH (08:29)
[2020-02-11] MEDS ORDERED: NON-FORMULARY MEDICATION (Prenat.Vits,Cal,Min-Iron-Folic 1 TAB) PO SCH (09:00)
[2020-02-11 09:04] LABS: Hematocrit (blood only) 33.7 % (37-47); Hemoglobin 11.2 g/dL (12.0-16.0)
[2020-02-11] MEDS ORDERED: bisacodyL 5 MG TABEC PO SCH (20:00)
--- NOTE | 2020-02-12 07:17 | Obstetrical Progress Note ---
Date of Service February 12, 2020 Assessment & Plan (1) : PPD#1 doing well, no concerns. Stable for discharge Subjective Ambulation: ambulating normally Voiding: no voiding problems Diet Tolerance:: regular diet Lochia:: Moderate Physical Exam Constitutional WD/WN, vitals as above Respiratory normal respiratory effort; no respiratory distress and no labored breathing Gastrointestinal (Abdomen) Inspection/Auscultation: abdomen normal to inspection; abdomen not distended Percussion/Palpation: abdomen soft; abdomen nontender, no guarding and abdomen not rigid Genitourinary OB Exam Abdomen: + fundal height Fundus: + firm and + relation to umbilicus (Below); not tender and not boggy Results & Data Vital Signs (Past 12 Hours) Vital Signs Temp Pulse Resp BP 02/12/20 04:39 36.7 C 82 20 102/68 02/12/20 00:00 37.0 C 88 18 117/80 02/11/20 20:00 36.7 C 91 H 18 112/72
[2020-02-12] MEDS: DOCUSATE SODIUM 100 MG CAP PO SCH (08:02)
[2020-02-12] MEDS: PRENATAL VITAMIN 1 TAB PO SCH (08:02)
[2020-02-12] MEDS: IBUPROFEN 600 MG TAB PO PRN (08:02)
== END 2020-02-12 10:40 | disposition home or self-care (01) | DRG 807 ==
LOC: OPB 15:57 → 4S1 15:59 → 4S2 02-11 01:00

== ENCOUNTER 2022-02-19 15:35 | Inpatient (IN) ==
--- NOTE | 2022-02-19 16:19 | History & Physical Report ---
Date of Service February 19, 2022 Assessment & Plan (1) Encounter for supervision of normal in multigravida: Plan: 31 yo here for labor check -Blood Type AB+, GBS-, RI -will continue to monitor cervical dilation -continue to monitor vitals -patient requests epidural History of Present Illness Chief Complaint: Labor Check Primary Care Provider: Barbara Theodore MD 31yo Female at 40W 6D here for labor check. She has been feeling contractions every 3-4 minutes, denies any bleeding or discharge, has regular movement. No complications during , placenta previa has resolved. Patient is on only vitamins, denies other medications. She has had regular care. Allergies Allergy/AdvReac Type Severity Reaction Status Date / Time No Known Allergies Allergy Verified 02/13/22 08:29 Home Medications Medication Instructions Recorded Confirmed Type prenat.vits,romain,[id number] 1 tab PO DAILY 06/28/19 02/19/22 History Patient History Medical History Miscarriage Varicella vaccine Surgical History History of oral surgery Family History Grandmother Diabetes Grandfather Diabetes Mother Hypertension Kidney stone Osteoporosis Breast cancer Depression Father Hypertension Hypercholesterolemia Social History Smoking Status: Never smoker Hx Alcohol Use: No Hx Substance Use: No Preferred Language: Slovenian Communication Ability: Effective Finishing Machine Operator Required: No Beliefs That Will Affect Care: None marital status: marital status details: Deric Yepez (28) [phone] Current Living Situation: Spouse and Other Current Living Situation Comment: Lives at home with spouse and 2 children current occupational status: employed current occupation: Alarm Installation Technician @ [employer] Other Information That Helps Us Care for You: No Feels Safe at Home: Yes Safety Concerns: Feels Safe At This Time Childhood Exposure to Second-Hand Smoke: No Assistive Devices: None Review of Systems Review of Systems Denies fever, chills, sweats Denies shortness of breath, difficulty breathing, chest pain, palpitations, chest pressure. Denies breast pain. Denies dysuria. Denies headache or changes in vision. Physical Exam Physical Exam: General: Alert, oriented. No acute distress. Cardiac: Regular rate and rhythm, no murmurs/rubs/gallops. Respiratory: Clear to auscultation bilaterally a/p, no wheezes/rales/rhonchi. No increased work of breathing. Symmetrical chest rise. No respiratory distress. Pelvic: Dilation 3cm; Effacement 50%; Station -[address] Kumar Lower Extremities: No lower extremity edema or swelling. No deep calf pain. Anel's negative bilaterally Baseline:135 Variability:moderate Accelerations:present Decelerations:absent Results & Data ([facility]) Vital Signs (Past 12 Hours) Vital Signs Temp Pulse Resp BP 02/19/22 15:58 79 110/72 02/19/22 15:47 36.8 C 79 18 110/72 Laboratory Results OB Labs: Blood Type AB Positive 07/10/21 Antibody Screen NEGATIVE 07/10/21 Hemoglobin 12.5 g/dL (12.0-16.0) 11/20/21 Hematocrit 37.8 % (37-47) 11/20/21 Mean Corpuscular Volume 94.1 fL (80-100) 07/10/21 Platelet Count 296 K/uL (130-400) 07/10/21 Rubella IgG Antibody Immune (Immune) 07/10/21 Rapid Plasma Reagin Nonreactive (Nonreactive) 07/10/21 Hepatitis B Surface Antigen Neg (Neg) 07/10/21 HIV (1&2) Ab and P24 Ag, 4th Gener Neg (Neg) 07/10/21 Glucose 1 Hour 50 gm Load 90 mg/dl (70-130) 11/20/21 OB Optional Labs: Chlamydia trachomatis RNA NOT DETECTED (NOT DETECTED) 07/10/21 Neisseria gonorrhoeae RNA NOT DETECTED (NOT DETECTED) 07/10/21 Supervising Physician Co-Signing Physician Notes Resident Physician Supervision Note: I interviewed and examined the patient. Discussed with Dr. Meraz and agree with findings and plan as documented in the note. Any exceptions or clarifications are listed here: 31 y/o at 40 6/7 wga presenting for r/o labor. Ini tially 2-3/50/-2, progressed to 4/50/-2 so admitted in labor. +FM; denies LOF, VB. VSS, fetus cat 1, ctx q5min. Will continue expectant management, GBS neg, epidural PRN Documented By: Madalyn Kumar MD Resident Activity Tracking Resident Involvement: Resident Care Provided Care Provided: Adult Hospital Medicine and OB Delivery
[2022-02-19 18:06] LABS: Hematocrit (blood only) 39.3 % (37-47); Hemoglobin 13.4 g/dL (12.0-16.0); Mean Corpuscular Hemoglobin 33.1 pg (25-34); Mean Corpuscular Hgb Conc 34.1 g/dL (32-36); Mean Platelet Volume 10.3 fL (7.4-10.4); Platelet Count 234 K/uL (130-400); RDW Coefficient of Variation 13.2 % (11.5-14.5); Red Blood Count 4.05 M/uL (4.2-5.4)
[2022-02-19] MEDS: LACTATED RINGER'S 1,000 ML IV PRN ×2 (19:01→20:05)
[2022-02-19] MEDS ORDERED: ePHEDrine sulfate 50 MG/ML AMP ONE (19:13)
[2022-02-19] MEDS ORDERED: fentaNYL citrate 100 MCG/2 ML VIAL ONE (19:13)
[2022-02-19] MEDS ORDERED: SODIUM CHLORIDE 0.9% INJ 10 ML VIAL ONE (19:13)
[2022-02-19] MEDS ORDERED: fentaNYL 2MCG/ML ROPIVACAINE 1.25MG/ML 100 ML BAG EPI ONE (19:14)
[2022-02-19] MEDS ORDERED: BUPIVACAINE 0.25% 30 ML VIAL ONE (19:14)
--- NOTE | 2022-02-19 19:34 | Anesthesiology Consultation ---
Date of Service February 19, 2022 Assessment & Plan (1) Encounter for pre-operative examination: Chart Review Chart Review: Patient NOT seen in Pre Admission Testing and Acceptable Risk for Labor Epidural Consults Requested none History Height/Weight Height: 5 ft 4 in Weight: 82.554 kg Allergies Allergy/AdvReac Type Severity Reaction Status Date / Time No Known Allergies Allergy Verified 02/13/22 08:29 Medications Home Medications Medication Instructions Recorded Confirmed Last Taken prenat.vits,romain,sux-mfgz-kaeiu 1 tab PO DAILY 06/28/19 02/19/22 02/18/22 19:00 Active Medications Generic Name Dose Route Start Last Admin Trade Name Freq PRN Reason Stop Dose Admin Lactated Ringer's 1,000 mls @ 125 mls/hr 02/19/22 17:36 02/19/22 19:01 Lr IV 02/21/22 17:35 999 mls/hr .Q8H PRN Administration L&D Protocol Protocol Past Medical History Medical History (Updated 02/19/22 @ 19:34 by Cathleen Coyne MD) Miscarriage Varicella vaccine Past Family History Family History Grandmother Diabetes Grandfather Diabetes Mother Hypertension Kidney stone Osteoporosis Breast cancer Depression Father Hypertension Hypercholesterolemia Past Surgical History Surgical History History of oral surgery Social History Smoking Status: Never smoker Hx Alcohol Use: No Hx Substance Use: No Physical Exam Vital Signs Last Vital Signs Temp 36.7 C 02/19/22 19:05 Pulse 81 02/19/22 19:01 Resp 18 02/19/22 19:05 BP 124/75 02/19/22 19:01 Testing Laboratory Results 02/19/22 17:54
[2022-02-19] MEDS ORDERED: diphenhydrAMINE 50 MG/ML VIAL IV PRN ×3 (20:06→23:19)
[2022-02-19] MEDS ORDERED: NALOXONE HCL 0.4 MG/1 ML VIAL/CARP IV PRN ×3 (20:06→23:19)
[2022-02-19] MEDS ORDERED: ePHEDrine sulfate 50 MG/ML AMP IV PRN ×3 (20:06→23:19)
[2022-02-19] MEDS ORDERED: NALBUPHINE HCL INJ 10 MG/ML AMP IV PRN ×3 (20:06→23:19)
[2022-02-19] MEDS ORDERED: fentaNYL 2MCG/ML ROPIVACAINE 1.25MG/ML 100 ML BAG EPI PRN ×2 (20:06→23:19)
[2022-02-19] MEDS ORDERED: NALOXONE HCL 1 MG in SODIUM CHLORIDE 0.9% 1000ML 1,000 ML IV PRN ×3 (20:06→23:19)
[2022-02-19] MEDS ORDERED: ONDANSETRON INJ 2 MG/ML 2 ML VIAL IV PRN ×3 (20:06→23:19)
[2022-02-19] MEDS ORDERED: LACTATED RINGER'S 500 ML IV PRN (22:11)
[2022-02-19] MEDS ORDERED: NALOXONE HCL 0.08 MG in SYRINGE 1.8 ML IV PRN (22:11)
[2022-02-19] MEDS ORDERED: MoRPHine SULFATE PF 1 MG/ML 10 ML AMP/VIAL INT SPINAL ONE (22:11)
[2022-02-19] MEDS ORDERED: ACETAMINOPHEN 1000 MG/100 ML IV IV PRN (22:11)
[2022-02-19] MEDS ORDERED: PROMETHAZINE HCL 25 MG in SODIUM CHLORIDE 0.9% 50 ML IV PRN (22:11)
[2022-02-19] MEDS ORDERED: KETOROLAC 30 MG/ML VIAL IV PRN (22:13)
[2022-02-19] MEDS ORDERED: HYDROmorphone INJ 0.5 MG/0.5 ML SYR IV PRN (22:13)
[2022-02-19] MEDS ORDERED: NO NARCOTICS OR SEDATIVES SCH (22:15)
[2022-02-19] MEDS ORDERED: DC INTRASPINAL MORPHINE SCH (22:15)
[2022-02-19] MEDS ORDERED: SODIUM CHLORIDE 0.9% 1000ML 1,000 ML IV SCH (22:15)
--- NOTE | 2022-02-19 22:49 | Labor Progress Brief Note ---
Date of Service February 19, 2022 Subjective Comfortable w/ epidural, occ pressure Assessment & Plan (1) : Plan: 31 y/o at 40 6/7 wga in labor VSS Fetus cat 1 Labor - s/p arom, augment PRN GBS neg epidural in place Physical Exam Genitourinary: Manual OB Exam: + cervical dilation 5 cm, + cervical effacement 70%, + station -2 and + amniotic fluid (AROM) meconium OB Exam Monitor Tracing: + external FHT monitor used, + external uterine monitor used (q4) and + category I (125/mod/+accel/-decel) Results & Data ([facility]) Vital Signs (Past 12 Hours) Vital Signs Temp Pulse Resp BP Pulse Ox 02/19/22 22:43 71 103/58 L 02/19/22 22:41 72 99 02/19/22 22:40 98.6 F 02/19/22 22:36 79 99 02/19/22 22:31 72 100 02/19/22 22:28 75 104/56 L 02/19/22 22:26 72 98 02/19/22 22:21 87 98 02/19/22 22:16 80 98 02/19/22 22:14 71 104/61 02/19/22 22:11 74 98 02/19/22 22:06 72 99 02/19/22 22:01 66 100 02/19/22 22:00 18 02/19/22 21:59 80 113/75 02/19/22 21:56 96 H 100 02/19/22 21:51 83 99 02/19/22 21:46 90 99 02/19/22 21:44 85 123/66 02/19/22 21:41 81 98 02/19/22 21:36 83 98 02/19/22 21:31 88 98 02/19/22 21:30 18 02/19/22 21:28 83 115/72 02/19/22 21:26 84 99 02/19/22 21:21 84 100 02/19/22 21:16 86 98 02/19/22 21:13 79 119/73 02/19/22 21:11 88 99 02/19/22 21:06 83 100 02/19/22 21:01 91 H 100 02/19/22 21:00 18 02/19/22 20:58 82 122/76 04/20/22 20:56 86 99 02/19/22 20:51 87 99 02/19/22 20:46 87 100 02/19/22 20:44 79 124/77 02/19/22 20:41 84 98 02/19/22 20:36 90 98 02/19/22 20:31 82 99 02/19/22 20:30 18 02/19/22 20:29 91 H 129/82 02/19/22 20:26 81 99 02/19/22 20:21 85 99 02/19/22 20:16 93 H 98 02/19/22 20:13 91 H 125/87 02/19/22 20:11 95 H 118/80 99 02/19/22 20:09 92 H 124/85 02/19/22 20:07 86 132/77 02/19/22 20:06 89 99 02/19/22 20:05 80 139/88 02/19/22 20:03 72 130/88 02/19/22 20:01 83 126/100 100 02/19/22 19:59 78 134/89 02/19/22 19:57 71 133/93 02/19/22 19:56 78 100 02/19/22 19:55 62 130/88 02/19/22 19:51 72 100 02/19/22 19:46 88 100 02/19/22 19:42 69 140/85 02/19/22 19:41 79 100 02/19/22 19:05 98.1 F 18 02/19/22 19:01 98.1 F 81 18 124/75 02/19/22 15:58 79 110/72 02/19/22 15:47 98.2 F 79 18 110/72 Coding Level of Care Code None Diagnoses Z34.90
[2022-02-19] MEDS ORDERED: ERYTHROMYCIN OP OINT 1 GM PKT ONE (23:52)
[2022-02-20] MEDS: OXYTOCIN 30 UNITS/500 ML BAG IV PRN ×2 (00:07→00:54)
--- NOTE | 2022-02-20 00:25 | Anesthesia Procedure Note ---
Date of Service February 20, 2022 Anesthesia Post Epidural Note Vital Signs Vital Signs: Temp Pulse Resp BP Pulse Ox 36.7 C 80 18 126/78 100 02/20/22 00:10 02/20/22 00:13 02/19/22 23:30 02/20/22 00:13 02/19/22 23:56 Pain Intensity Bilateral Abdomen: Pain Intensity: 3 Notes Mental Status: alert / awake / arousable and participated in evaluation Nausea / Vomiting: adequately controlled Pain: adequately controlled Airway Patency, RR, SpO2: stable & adequate BP & HR: stable & adequate Hydration State: stable & adequate Neuraxial Anesthesia: was administered and sensory block is resolving Anesthetic Complications: no major complications apparent and Pt Satisfied with anesthetic care Epidural: Removed without complications and With tip intact
--- NOTE | 2022-02-20 00:27 | Delivery Summary ---
Vaginal Delivery Summary Date of Service February 19, 2022 Vaginal Delivery Summary and 2nd Degree LAC PREOPERATIVE DIAGNOSIS: 1. Single intrauterine at 40w6d 2. Labor POSTOPERATIVE DIAGNOSIS: 1. Single intrauterine at 40w6d 2. Labor 3. Delivered PROCEDURE: 1. Normal spontaneous vaginal delivery. SURGEON: Madalyn Kumar MD ANESTHESIA: Epidural. ESTIMATED BLOOD LOSS: 300 mL FLUIDS: Continuous LR. URINE OUTPUT: None. COMPLICATIONS: None. CONDITION: Stable. INDICATIONS: 31 y/o at 40w6d presented with contractions increasing in frequency and intensity. She was found to be 2-3cm and progressed to 3-4cm. She received an epidural for pain control. She underwent artificial rupture of membranes and quickly progressed to complete and desired to push. FINDINGS: A viable male , weight pending with Apgars of 8 and 9 at 1 and 5 minutes respectively. SPECIMEN: Cord blood OPERATIVE REPORT: The patient progressed to 10 cm, 100% effaced and +2 station, pushed over 3 contractions and intact perineum with anesthesia to deliver a viab le male infant, weight and Apgars as above. Head of delivered in LIYAH position. No nuchal cord was present. Body and shoulders were delivered without difficulty. was delivered to maternal abdomen and nursing staff. Delayed cord clamping was performed for 60 seconds. Cord was clamped and cut. Cord blood was obtained. Placenta delivered spontaneously intact with 3-vessel cord. IV oxytocin and fundal massage were given for excellent hemostasis. Vagina, cervix, perineum, and placenta were inspected. A second degree laceration was noted and repaired using 3-0 vicryl in the usual fashion. Sponge and needle counts correct x2. No sponges were left behind. Mother and stable in immediate period. [facility] [place] Vaginal Delivery Charge Vaginal Delivery Codes: 96131 global code for the antepartum, delivery, and post- Delivery Type Details: and 2nd Degree LAC
[2022-02-20] MEDS ORDERED: BENZOCAINE 20% AER SPR 82.5 GM CAN EXT PRN (02:28)
[2022-02-20] MEDS ORDERED: OXYTOCIN 30 UNITS/500 ML BAG IV PRN (02:28)
[2022-02-20] MEDS ORDERED: ACETAMINOPHEN 325 MG TAB PO PRN (02:28)
[2022-02-20] MEDS ORDERED: HYDROCORTISONE ACETATE 25 MG SUPP PR PRN (02:28)
[2022-02-20] MEDS ORDERED: DIPHTHERIA/TETANUS/PERTUSSIS 0.5 ML SYR/VIAL IM ONE (02:28)
[2022-02-20] MEDS: IBUPROFEN 600 MG TAB PO PRN ×3 (03:42→21:12)
--- NOTE | 2022-02-20 06:06 | Obstetrical Progress Note ---
Date of Service <Maranda Meraz DO - Last Filed: 02/20/22 07:17> February 20, 2022 Assessment & Plan <Maranda Meraz DO - Last Filed: 02/20/22 07:17> (1) Encounter for care and examination after delivery: 31 yo post op day1 from , doing well. -Continue routine post care. -vital signs reviewed and WNL (Tmax 36.8) -Blood Type AB+, GBS-, Rubella immune -Encourage ambulation, monitor and control pain with Motrin, tylenol PRN, resume regular diet, monitor lochia -encourage breast feeding -hemoglobin 13.4 Day #:: 1 <Madalyn Kumar MD - Last Filed: 02/20/22 08:13> (1) Encounter for care and examination after delivery: Subjective <Marandasuzan Meraz DO - Last Filed: 02/20/22 07:17> Ambulation: ambulating normally Voiding: no voiding problems Passing Gas:: Yes Diet Tolerance:: regular diet Lochia:: Small Feeding Type:: breast feeding Current Pain Level(1-10): 0 Review of Systems Mild headache resolved with motrin Denies fever, chills, sweats Denies shortness of breath, difficulty breathing, chest pain, palpitations, chest pressure. Denies breast pain. Denies dysuria. Denies changes in vision. Physical Exam <Marandasuzan Meraz DO - Last Filed: 02/20/22 07:17> General: Alert, oriented. No acute distress. Cardiac: Regular rate and rhythm, no murmurs/rubs/gallops. Respiratory: Clear to auscultation bilaterally a/p, no wheezes/rales/rhonchi. No increased work of breathing. Symmetrical chest rise. No respiratory distress. Abdomen: Soft, nontender, nondistended. Bowel sounds present. Uterus: Uterine fundus firm, palpable 1 cm below umbilicus. Lower Extremities: No lower extremity edema or swelling. No deep calf pain. Anel's negative bilaterally.. Results & Data ([facility]) <Maranda Meraz DO - Last Filed: 02/20/22 07:17> Vital Signs (Past 12 Hours) Vital Signs Temp Pulse Resp BP Pulse Ox 02/20/22 04:01 36.8 C 18 02/20/22 02:20 36.7 C 18 02/20/22 02:18 75 134/81 02/20/22 02:04 76 119/71 02/20/22 01:50 18 02/20/22 01:49 77 122/74 02/20/22 01:34 79 117/68 02/20/22 01:20 18 02/20/22 01:19 76 112/59 L 02/20/22 01:05 18 02/20/22 01:04 78 115/64 02/20/22 00:50 18 02/20/22 00:49 67 122/72 02/20/22 00:35 18 02/20/22 00:34 79 135/74 02/20/22 00:23 85 138/65 02/20/22 00:20 18 02/20/22 00:13 80 126/78 02/20/22 00:10 36.7 C 02/19/22 23:57 18 02/19/22 23:56 96 H 100 02/19/22 23:51 98 H 100 02/19/22 23:46 82 100 02/19/22 23:44 93 H 109/73 02/19/22 23:41 85 100 02/19/22 23:36 78 100 02/19/22 23:31 75 100 02/19/22 23:30 18 02/19/22 23:28 82 128/81 02/19/22 23:26 81 100 02/19/22 23:21 77 98 02/19/22 23:16 67 98 02/19/22 23:13 76 105/57 L 02/19/22 23:11 84 98 02/19/22 23:06 74 97 02/19/22 23:01 72 99 02/19/22 23:00 18 02/19/22 22:59 72 98/54 L 02/19/22 22:56 71 98 02/19/22 22:51 73 98 02/19/22 22:46 74 98 02/19/22 22:43 71 103/58 L 02/19/22 22:41 72 99 02/19/22 22:40 37.0 C 02/19/22 22:36 79 99 02/19/22 22:31 72 100 02/19/22 22:30 18 02/19/22 22:28 75 104/56 L 02/19/22 22:26 72 98 22 22:21 87 98 02/19/22 22:16 80 98 22 22:14 71 104/61 02/19/22 22:11 74 98 22 22:06 72 99 02/19/22 22:01 66 100 02/19/22 22:00 18 02/19/22 21:59 80 113/75 22 21:56 96 H 100 22 21:51 83 99 22 21:46 90 99 22 21:44 85 123/66 22 21:41 81 98 02/19/22 21:36 83 98 02/19/22 21:31 88 98 02/19/22 21:30 18 02/19/22 21:28 83 115/72 02/19/22 21:26 84 99 02/19/22 21:21 84 100 02/19/22 21:16 86 98 02/19/22 21:13 79 119/73 22 21:11 88 99 02/19/22 21:06 83 100 02/19/22 21:01 91 H 100 02/19/22 21:00 18 02/19/22 20:58 82 122/76 02/19/22 20:56 86 99 02/19/22 20:51 87 99 02/19/22 20:46 87 100 02/19/22 20:44 79 124/77 22 20:41 84 98 02/19/22 20:36 90 98 22 20:31 82 99 22 20:30 18 22 20:29 91 H 129/82 2022 20:26 81 99 2022 20:21 85 99 2022 20:16 93 H 98 22 20:13 91 H 125/87 2022 20:11 95 H 118/80 99 22 20:09 92 H 124/85 042022 20:07 86 132/77 22 20:06 89 99 02/19/22 20:05 80 139/88 22 20:03 72 130/88 02/19/22 20:01 83 126/100 100 02/19/22 19:59 78 134/89 02/19/22 19:57 71 133/93 02/19/22 19:56 78 100 02/19/22 19:55 62 130/88 02/19/22 19:51 72 100 02/19/22 19:46 88 100 02/19/22 19:42 69 140/85 02/19/22 19:41 79 100 02/19/22 19:05 36.7 C 18 02/19/22 19:01 36.7 C 81 18 124/75 <Madalyn Kumar MD - Last Filed: 02/20/22 08:13> Co-Signing Physician Notes Resident Physician Supervision Note: I interviewed and examined the patient. Discussed with Dr. Meraz and agree with findings and plan as documented in the note. Any exceptions or clarifications are listed here: PP1 s/p , doing well. VSS, exam benign. Continue routine pp care Documented By: Madalyn Kumar MD Resident Activity Tracking <Maranda Meraz DO - Last Filed: 02/20/22 07:17> Resident Involvement: Resident Care Provided Care Provided: Adult Hospital Medicine and OB Delivery
[2022-02-20] MEDS: DOCUSATE SODIUM 100 MG CAP PO SCH ×2 (08:56→21:12)
[2022-02-20] MEDS: PRENATAL VITAMIN 1 TAB PO SCH (08:56)
[2022-02-21] MEDS: IBUPROFEN 600 MG TAB PO PRN ×2 (00:46→08:40)
--- NOTE | 2022-02-21 07:45 | Obstetrical Progress Note ---
Date of Service <Marandasuzan Meraz DO - Last Filed: 02/21/22 07:45> February 21, 2022 Assessment & Plan <Maranda Meraz DO - Last Filed: 02/21/22 07:45> (1) Encounter for care and examination after delivery: 31 yo post op day2 from , doing well. -Continue routine post care. -vital signs reviewed and WNL (Tmax 36.9) -Blood Type AB+, GBS-, Rubella immune -Encourage ambulation, monitor and control pain with Motrin, tylenol PRN, resume regular diet, monitor lochia -encourage breast feeding -hemoglobin 13.4 Day #:: 2 <Santos Villarreal MD, FACOG - Last Filed: 02/21/22 07:52> (1) Encounter for care and examination after delivery: Subjective <Marandasuzan Meraz DO - Last Filed: 02/21/22 07:45> Ambulation: ambulating normally Voiding: no voiding problems Passing Gas:: Yes Diet Tolerance:: regular diet Lochia:: Small Feeding Type:: breast feeding Current Pain Level(1-10): 0 Review of Systems Denies fever, chills, sweats Denies shortness of breath, difficulty breathing, chest pain, palpitations, chest pressure. Denies breast pain. Denies dysuria. Denies headache or changes in vision. Physical Exam <Maranda KtDO - Last Filed: 02/21/22 07:45> General: Alert, oriented. No acute distress. Cardiac: Regular rate and rhythm, no murmurs/rubs/gallops. Respiratory: Clear to auscultation bilaterally a/p, no wheezes/rales/rhonchi. No increased work of breathing. Symmetrical chest rise. No respiratory distress. Abdomen: Soft, nontender, nondistended. Bowel sounds present. Uterus: Uterine fundus firm, palpable 1 cm below umbilicus. Lower Extremities: No lower extremity edema or swelling. No deep calf pain. Anel's negative bilaterally.. Results & Data ([facility]) <Maranda Meraz DO - Last Filed: 02/21/22 07:45> Vital Signs (Past 12 Hours) Vital Signs Temp Pulse Resp BP Pulse Ox 02/21/22 00:40 36.9 C 71 20 112/72 97 <Santos Villarreal MD, FACOG - Last Filed: 02/21/22 07:52> Co-Signing Physician Notes Resident Physician Supervision Note: I interviewed and examined the patient. Discussed with [Name of resident] and agree with findings and plan as documented in the note. Any exceptions or clarifications are listed here: [None] Documented By: Santos Villarreal MD, FACOG Resident Activity Tracking <Maranda Meraz DO - Last Filed: 02/21/22 07:45> Resident Involvement: Resident Care Provided Care Provided: Adult Hospital Medicine and OB Delivery
[2022-02-21] MEDS: DOCUSATE SODIUM 100 MG CAP PO SCH (08:40)
[2022-02-21] MEDS: PRENATAL VITAMIN 1 TAB PO SCH (08:40)
[2022-02-21] MEDS ORDERED: bisacodyL 5 MG TABEC PO SCH (20:00)
[2022-02-22] MEDS ORDERED: bisacodyL 10 MG SUPP PR PRN
== END 2022-02-21 10:50 | disposition home or self-care (01) | DRG 807 ==
LOC: OPB 15:35 → 4S1 15:36 → 4E2 02-20 11:44

== ENCOUNTER 2024-08-17 07:46 | Inpatient (IN) ==
[2024-08-17] MEDS ORDERED: OXYTOCIN 30 UNITS/NSS 30 UNITS/500 ML BAG IV PRN ×2 (08:48→16:52)
[2024-08-17] MEDS ORDERED: LIDOCAINE 1% LOCAL 20 ML VIAL INFIL PRN (08:48)
[2024-08-17 09:21] LABS: Hematocrit (blood only) 38.8 % (37.0-47.0); Hemoglobin 13.1 g/dl (12.0-16.0); Mean Corpuscular Hemoglobin 31.5 pg (25.0-34.0); Mean Corpuscular Hgb Conc 33.8 g/dL (32.0-36.0); Mean Corpuscular Volume 93.3 fL (80.0-100.0); Mean Platelet Volume 10.1 fL (9.4-12.4); Platelet Count 206 K/uL (130-400); RDW Standard Deviation 44.3 fL (36.4-46.3); Red Blood Count 4.16 M/uL (4.20-5.40); White Blood Count 12.33 K/ul (4.8-10.8)
[2024-08-17] MEDS: OXYTOCIN 30 UNITS/NSS 30 UNITS/500 ML BAG IV PRN (09:55)
[2024-08-17] MEDS: LACTATED RINGER'S 1,000 ML IV PRN (09:56)
[2024-08-17] MEDS ORDERED: fentaNYL citrate PF 100 MCG/2 ML VIAL ONE (11:52)
[2024-08-17] MEDS ORDERED: ePHEDrine sulfate 50 MG/ML AMP ONE (11:52)
[2024-08-17] MEDS ORDERED: ROPIVACAINE 0.5% PF 5 MG/ML 20 ML VIAL EPI PRN (12:34)
[2024-08-17] MEDS ORDERED: ONDANSETRON INJ 2 MG/ML 2 ML VIAL IV PRN (12:34)
[2024-08-17] MEDS ORDERED: BUPIVACAINE 0.25% PF 30 ML VIAL EPI STA (12:34)
[2024-08-17] MEDS ORDERED: LIDOCAINE 2%/EPINEPHRINE 1:200,000 20 ML PF EPI STA (12:34)
[2024-08-17] MEDS ORDERED: fentaNYL citrate PF 100 MCG/2 ML VIAL EPI STA (12:34)
[2024-08-17] MEDS ORDERED: SODIUM CHLORIDE 0.9% PF INJ 10 ML VIAL EPI STA (12:34)
[2024-08-17] MEDS ORDERED: diphenhydrAMINE 50 MG/ML VIAL IV PRN (12:34)
[2024-08-17] MEDS ORDERED: ePHEDrine sulfate 50 MG/ML AMP IV PRN (12:34)
[2024-08-17] MEDS ORDERED: NALOXONE HCL 1 MG in SODIUM CHLORIDE 0.9% 1,000 ML IV PRN (12:34)
[2024-08-17] MEDS ORDERED: NALBUPHINE HCL INJ 10 MG/ML AMP IV PRN (12:34)
[2024-08-17] MEDS ORDERED: PROMETHAZINE 6.25 MG/50.25 ML BAG IV PRN (12:34)
[2024-08-17] MEDS ORDERED: fentaNYL citrate PF 100 MCG/2 ML VIAL EPI PRN (12:34)
[2024-08-17] MEDS ORDERED: LIDOCAINE 2% MPF LOCAL 5 ML VIAL EPI PRN (12:34)
[2024-08-17] MEDS ORDERED: fentANYL 2 MCG/ML BUPIVacaine 0.125%-NSS 100ML BAG EPI PRN (12:34)
[2024-08-17] MEDS ORDERED: NALOXONE HCL 0.4 MG/1 ML VIAL/CARP IV PRN (12:34)
[2024-08-17] MEDS ORDERED: BUPIVACAINE 0.25% PF 30 ML VIAL EPI PRN (12:34)
[2024-08-17] MEDS ORDERED: SODIUM CHLORIDE 0.9% PF INJ 10 ML VIAL EPI PRN (12:34)
--- NOTE | 2024-08-17 12:35 | Anesthesiology Consultation ---
Date of Service August 17, 2024 Assessment & Plan Chart Review Chart Review: Patient NOT seen in Pre Admission Testing and Acceptable Risk for Labor Epidural Consults Requested none ASA ASA2 Proposed Anesthesia Anesthesia Type: Labor Epidural Risk / Benefits Reviewed With: PT / POA / Parent / Guardian, Accepts Plan and Informed Consent Obtained History Height/Weight Height: 5 ft 4 in Weight: 85.368 kg Allergies Allergy/AdvReac Type Severity Reaction Status Date / Time Penicillins Allergy Intermediate Hives Verified 08/15/24 09:47 dicloxacillin Allergy Hives Verified 08/15/24 09:47 Medications Home Medications Medication Instructions Recorded Confirmed Last Taken prenat.vits,romain,[id number] 1 tab PO DAILY 06/28/19 08/15/24 1 Day Ago ~08/13/24 acetone (urine) test (Ketone Urine #50 ea 06/21/24 08/15/24 Unknown Test strips) blood sugar diagnostic (OneTouch #150 ea 06/21/24 08/15/24 Unknown Verio test strips) blood-glucose meter (OneTouch #1 ea 06/21/24 08/15/24 Unknown Verio Reflect Meter) lancets 33 gauge (OneTouch Delica #150 ea 06/21/24 08/15/24 Unknown Plus Lancet) Active Medications Generic Name Dose Route Start Last Admin Trade Name Freq PRN Reason Stop Dose Admin Oxytocin 30 units in 500 mls @ 2 mls/hr 08/17/24 08:48 08/17/24 09:55 Pitocin 30 Units/Nss IV 08/19/24 08:47 0.12 units/hr .Q24H PRN 2 mls/hr Labor Induction/Augmentation Administration Protocol 0.12 UNITS/HR Lactated Ringer's 1,000 mls @ 125 mls/hr 08/17/24 08:48 08/17/24 12:00 Lr IV 08/19/24 08:47 999 mls/hr .Q8H PRN Infusion L&D Protocol Protocol Past Medical History Medical History Spontaneous 03/2019 Spontaneous vaginal delivery 12/2017 C, 02/2020 [facility] Miscarriage Varicella vaccine Exercise / Class Metabolic Activity II 4-5 Yardwork/Stairs/Walk up hill Past Family History Family History Grandmother Diabetes Grandfather Diabetes Mother Hypertension Kidney stone Osteoporosis Breast cancer Depression Father Hypertension Hypercholesterolemia Past Surgical History Surgical History History of oral surgery Past Anesthesia History No Hx of Anesthesia Complications and No Family Hx of Anesthesia Complications History of PONV No Hx of PONV and No Hx of Motion Sickness Social History Smoking Status: Never smoker Do You Dip or Chew Tobacco: No Hx Alcohol Use: No Hx Substance Use: No Physical Exam Vital Signs Last Vital Signs Temp 37.1 C 08/17/24 12:14 Pulse 79 08/17/24 12:29 Resp 22 08/17/24 12:14 BP 120/76 08/17/24 08:50 Pulse Ox 98 08/17/24 12:29 ENMT Mouth: no dentition abnormality Thyromental Distance: > or= 3.5 Finger Breadths Mallampati Class: II Neck normal visual inspection Respiratory normal respiratory effort Auscultation: lungs clear to auscultation bilaterally Cardiovascular Rate/Rhythm: regular rate and regular rhythm Psychiatric Orientation: alert Testing Laboratory Results 08/17/24 08:54
[2024-08-17] MEDS: LIDOCAINE 2%/EPINEPHRINE 1:200,000 20 ML PF ONE (12:50)
[2024-08-17] MEDS: SODIUM CHLORIDE 0.9% PF INJ 10 ML VIAL ONE (12:50)
[2024-08-17] MEDS: BUPIVACAINE 0.25% PF 30 ML VIAL ONE (12:51)
[2024-08-17] MEDS: fentANYL 2 MCG/ML BUPIVacaine 0.125%-NSS 100ML BAG ONE (12:51)
[2024-08-17] MEDS ORDERED: ACETAMINOPHEN 325 MG TAB PO PRN (16:52)
[2024-08-17] MEDS ORDERED: oxyCODONE/ACETAMINOPHEN 5mg/325mg TAB PO PRN (16:52)
[2024-08-17] MEDS ORDERED: bisacodyL 10 MG SUPP PR PRN (16:52)
[2024-08-17] MEDS ORDERED: HYDROCORTISONE ACETATE 25 MG SUPP PR PRN (16:52)
[2024-08-17] MEDS ORDERED: DIPHTHER/TETAN/PERTUS Vaccine (Tdap, Adol/Adult) 0.5mL IM ONE (16:52)
--- NOTE | 2024-08-17 16:53 | Delivery Summary ---
Vaginal Delivery Summary Date of Service August 17, 2024 Vaginal Delivery Summary and 2nd Degree LAC . Was Equivacol ROM 4cm, post dates, so pitocin was started. Epidural. Progressed to complete then pushed for only 2 pushes, delivering a baby in OA position. No excess force easy delivery, vigorous male . Cord clamped cord blood obtained placenta removed with traction, small 2nd degree tear repaired 3- 0 vicryl. [id number] Vaginal Delivery Charge Delivery Type Details: and 2nd Degree LAC
--- NOTE | 2024-08-17 17:28 | Anesthesia Procedure Note ---
Date of Service August 17, 2024 Anesthesia Post Epidural Note Vital Signs Vital Signs: Temp Pulse Resp BP Pulse Ox 36.8 C 72 16 113/60 96 08/17/24 16:45 08/17/24 17:15 08/17/24 16:45 08/17/24 17:15 08/17/24 16:59 Notes Mental Status: alert / awake / arousable and participated in evaluation Patient Amnestic to Procedure: No Nausea / Vomiting: adequately controlled Pain: adequately controlled Airway Patency, RR, SpO2: stable & adequate BP & HR: stable & adequate Hydration State: stable & adequate Neuraxial Anesthesia: was administered and sensory block is resolving Anesthetic Complications: no major complications apparent and Pt Satisfied with anesthetic care Epidural: Removed without complications and With tip intact
[2024-08-17] MEDS: BENZOCAINE 20% SPRY 85 APPLN/85 GM CAN EXT PRN (19:22)
--- NOTE | 2024-08-18 06:53 | Obstetrical Progress Note ---
Date of Service <Jarvis Rodriguez DO - Last Filed: 08/18/24 08:55> August 18, 2024 Assessment & Plan <Jarvis Rodriguez DO - Last Filed: 08/18/24 08:55> (1) state: Patient is a 33yo day 2 s/p , complicated by 2nd degree perineal laceration during delivery. Feels well today, VSS Continue care Ambulation and as tolerated. Pain control w/ ibuprofen as needed Hgb: stable Home: today Follow up with Dr. Villarreal in 6wks (2) Perineal laceration during delivery: Small 2nd degree tear repaired 3-0 vicryl. [id number] Healing well WBC count increased to 17 from 12.33 Monitor for signs of infection Sitz baths to soothe healing lac Perineal laceration degree: second degree Qualified Code(s): O70.1 - Second degree perineal laceration during delivery <Santos Villarreal MD, FACOG - Last Filed: 08/19/24 10:09> (1) state: (2) Perineal laceration during delivery: Subjective <Jarvis BelenCharli Rodriguez DO - Last Filed: 08/18/24 08:55> Patient is a 33yo day 2 s/p , complicated by 2nd degree perineal laceration during delivery. Ambulation: yes Voiding: yes, urinating but no BM yet Passing gas: yes Diet tolerance: regular Lochia: small Feeding type: breast Current pain: minimal Resting comfortably this AM in NAD. Denies fever, body aches, chills, headache, SOB, abdominal pain, LE pain/swelling, or LE numbness/tingling. Review of Systems as above Physical Exam <Jarvis Rodriguez DO - Last Filed: 08/18/24 08:55> General: A&Ox4, patient resting comfortably, nontoxic in appearance Skin: warm, dry, intact; notes lac incision has been healing well with stitches intact, no signs of infection HEENT: NC/AT, anicteric sclerae, conjunctiva w/o infection, moist mucous membranes Heart: +s1/s2, RRR, no murmurs, rubs or gallops Lungs: equal air entry b/l, clear to auscultation b/l, no wheezes/rales/rhonchi Abd: +BS, soft, nontender, fundus firm, at level of umbilicus Ext: no swelling/pain/erythema, no tenderness to palpation, no clubbing/cyanosis Neuro: speech intact, no facial droop, moves all extremities on command and spontaneously Results & Data <Jarvis Rodriguez DO - Last Filed: 08/18/24 08:55> Vital Signs (Past 12 Hours) Vital Signs Temp Pulse Pulse Resp BP BP Pulse Ox 08/18/24 04:00 36.8 C 81 18 105/71 98 08/18/24 00:00 37.0 C 64 20 109/76 99 08/17/24 19:00 93 H 08/17/24 19:00 121/68 O2 Del Method 08/18/24 04:00 Room Air 08/18/24 00:00 Room Air 08/17/24 19:00 08/17/24 19:00 Supervising Physician <Santos Villarreal MD, FACOG - Last Filed: 08/19/24 10:09> Co-Signing Physician Notes Resident Physician Supervision Note: I was present with Dr. Benito during the history and exam. I discussed the case with the resident and agree with the findings and plan as documented in the note. Any exceptions or clarifications are listed here: [None] Documented By: Santos Villarreal MD, FACOG Resident Activity Tracking <Jarvis Rodriguez DO - Last Filed: 08/18/24 08:55> Resident Involvement: Resident Care Provided Care Provided: OB Delivery
[2024-08-18 07:04] LABS: Hematocrit (blood only) 35.6 % (37.0-47.0); Hemoglobin 12.4 g/dl (12.0-16.0); Mean Corpuscular Hemoglobin 32.5 pg (25.0-34.0); Mean Corpuscular Hgb Conc 34.8 g/dL (32.0-36.0); Mean Corpuscular Volume 93.2 fL (80.0-100.0); Mean Platelet Volume 10.5 fL (9.4-12.4); Platelet Count 179 K/uL (130-400); RDW Coefficient of Variation 13.1 % (11.5-14.5); RDW Standard Deviation 44.3 fL (36.4-46.3); Red Blood Count 3.82 M/uL (4.20-5.40); White Blood Count 17.05 K/ul (4.8-10.8)
[2024-08-18] MEDS: PRENATAL VITAMIN 1 TAB PO SCH (08:51)
[2024-08-18] MEDS: DOCUSATE SODIUM 100 MG CAP PO SCH (08:52)
[2024-08-18] MEDS: IBUPROFEN 600 MG TAB PO PRN (08:54)
[2024-08-18 16:27] VITALS: BP 108/70; PULSE 74; RESP 20; TEMP 97.7; O2SAT 97
[2024-08-18] MEDS ORDERED: bisacodyL 5 MG TABEC PO SCH (20:00)
== END 2024-08-18 18:15 | disposition home or self-care (01) | DRG 807 ==
LOC: OPB 07:46 → 4S1 07:49 → 4E2 19:33